=== PATIENT | female | born 2000 | race Caucasian/White ===

== ENCOUNTER → 2024-01-07 | Outpatient (CLI) | payer OTHER ==
[2024-01-07 13:30] LABS: HEMATOCRIT 38.8 % (36.0-47.0); HEMOGLOBIN 12.6 g/dl (12.0-15.5); MEAN CORPUSCULAR HEMOGLOBIN 27.5 pg (27.0-33.0); MEAN CORPUSCULAR HGB CONC 32.5 g/dl (32.0-36.5); MEAN CORPUSCULAR VOLUME 84.5 fl (80.0-96.0); PLATELET COUNT, AUTOMATED 329 10^3/uL (150-450); RED BLOOD COUNT 4.59 10^6/uL (4.00-5.40); WHITE BLOOD COUNT 14.4 10^3/uL (4.0-10.0)
[2024-01-07 13:57] LABS: HEMOGLOBIN A1c 5.1 % (4.0-6.0)
[2024-01-07 14:05] LABS: HIV 1&2 SCREEN NEGATIVE (NEGATIVE)
[2024-01-07 14:13] LABS: HEPATITIS C VIRUS ABY INDEX 0.03 INDEX (<0.8)
[2024-01-07 15:24] LABS: GC DNA AMPLIFICATION NEGATIVE (NEGATIVE)
== END ==
LOC: M PLALAB 10:16
PROVIDERS: ATTEND Advanced Practice Midwife
DX: Z34.81 Encounter for supervision of other normal pregnancy, first trimester (principal)

== ENCOUNTER → 2024-02-04 | Outpatient (CLI) | payer OTHER | LOC: M PLALAB 09:42 | PROVIDERS: ATTEND Obstetrics & Gynecology | DX: Z34.92 Encounter for supervision of normal pregnancy, unspecified, second trimester (principal) ==

== ENCOUNTER → 2024-03-13 | Outpatient (CLI) | payer OTHER | LOC: M WHC 07:35 | PROVIDERS: ATTEND Obstetrics & Gynecology | DX: Z34.92 Encounter for supervision of normal pregnancy, unspecified, second trimester (principal) ==

== ENCOUNTER → 2024-04-17 | Outpatient (CLI) | payer OTHER ==
[2024-04-17 10:29] LABS: GLUCOSE CHALLENGE TEST 1 HOUR 190 MG/DL (LESS THAN 140); HEMATOCRIT 33.2 % (36.0-47.0); HEMOGLOBIN 10.8 g/dl (12.0-15.5); MEAN CORPUSCULAR HEMOGLOBIN 27.8 pg (27.0-33.0); MEAN CORPUSCULAR HGB CONC 32.5 g/dl (32.0-36.5); MEAN CORPUSCULAR VOLUME 85.3 fl (80.0-96.0); PLATELET COUNT, AUTOMATED 279 10^3/uL (150-450); RED BLOOD COUNT 3.89 10^6/uL (4.00-5.40)
[2024-04-17 11:05] LABS: HIV 1&2 SCREEN NEGATIVE (NEGATIVE)
[2024-04-17 11:12] LABS: HEPATITIS C VIRUS ABY INDEX < 0.02 INDEX (<0.8)
[2024-04-17 12:51] LABS: GC DNA AMPLIFICATION NEGATIVE (NEGATIVE)
== END ==
LOC: M PLALAB 07:15
PROVIDERS: ATTEND Nurse Practitioner Women's Health
DX: Z34.80 Encounter for supervision of other normal pregnancy, unspecified trimester (principal)

== ENCOUNTER → 2024-04-20 | Outpatient (CLI) | payer OTHER | LOC: M WHC 08:52 | PROVIDERS: ATTEND Obstetrics & Gynecology | DX: O44.42 Low lying placenta NOS or without hemorrhage, second trimester (principal); Z3A.24 24 weeks gestation of pregnancy ==

== ENCOUNTER → 2024-04-27 | Outpatient (CLI) | payer OTHER | LOC: M LAB 06:46 | PROVIDERS: ATTEND Obstetrics & Gynecology | DX: O99.810 Abnormal glucose complicating pregnancy (principal); Z3A.00 Weeks of gestation of pregnancy not specified ==

== ENCOUNTER → 2024-06-18 | Outpatient (CLI) | payer OTHER | LOC: M RAD 07:10 | PROVIDERS: ATTEND Obstetrics & Gynecology | DX: O24.410 Gestational diabetes mellitus in pregnancy, diet controlled (principal); Z3A.33 33 weeks gestation of pregnancy ==

== ENCOUNTER → 2024-06-18 | Outpatient (REF) | payer OTHER ==
[2024-06-18 18:22] LABS: APPEARANCE, URINE HAZY (CLEAR); BACTERIA, URINE AUTO NEGATIVE (NEGATIVE); BILIRUBIN, URINE AUTO NEGATIVE (NEGATIVE); BLOOD, URINE BLOOD NEGATIVE (NEGATIVE); CALCIUM OXALATE CRYSTALS SMALL; COLOR, URINE YELLOW (YELLOW); GLUCOSE, URINE (UA) AUTO NEGATIVE (NEGATIVE); KETONE, URINE AUTO TRACE mg/dL (NEGATIVE); LEUKOCYTE ESTERASE, URINE AUTO TRACE (NEGATIVE); MUCUS, URINE SMALL (NEGATIVE); NITRITE, URINE AUTO NEGATIVE (NEGATIVE); PROTEIN, URINE AUTO NEGATIVE (NEGATIVE); RBC, URINE AUTO 1 /HPF (0-3); SPECIFIC GRAVITY URINE AUTO 1.019 (1.002-1.035); SQUAMOUS EPITHELIAL CELL UR AU 4 /HPF (0-6); UROBILINOGEN, URINE AUTO 0.2 mg/dL (0.0-2.0); WBC, URINE AUTO 3 /HPF (0-3)
== END ==
LOC: M PLALAB 14:10
PROVIDERS: ATTEND Obstetrics & Gynecology
DX: R31.0 Gross hematuria (principal)

== ENCOUNTER → 2024-07-01 | Outpatient (CLI) | payer OTHER ==
[2024-07-01 13:41] LABS: HEMATOCRIT 37.4 % (36.0-47.0); MEAN CORPUSCULAR HEMOGLOBIN 27.5 pg (27.0-33.0); MEAN CORPUSCULAR HGB CONC 32.1 g/dl (32.0-36.5); MEAN CORPUSCULAR VOLUME 85.6 fl (80.0-96.0); PLATELET COUNT, AUTOMATED 263 10^3/uL (150-450); RED BLOOD COUNT 4.37 10^6/uL (4.00-5.40)
[2024-07-01 14:01] LABS: TOTAL PROTEIN,RANDOM URINE 6.7 MG/DL (0.0-14.0)
[2024-07-01 14:04] LABS: URIC ACID 4.8 MG/DL (3.1-7.8)
[2024-07-01 14:06] LABS: CREATININE,RANDOM URINE 31.5 MG/DL; LDH LACTATE DEHYDROGENASE 134 U/L (120-246)
[2024-07-01 14:08] LABS: ALT/SGPT 11 U/L (7.0-40); AST/SGOT < 8 U/L (<34); BILIRUBIN,TOTAL 0.3 MG/DL (0.3-1.2); CREATININE FOR GFR 0.49 MG/DL (0.55-1.30); GLOMERULAR FILTRATION RATE > 60.0 (>60)
== END ==
LOC: M PLALAB 11:03
PROVIDERS: ATTEND Obstetrics & Gynecology
DX: O26.899 Other specified pregnancy related conditions, unspecified trimester (principal); Z3A.00 Weeks of gestation of pregnancy not specified

== ENCOUNTER → 2024-07-08 | Outpatient (REF) | payer OTHER ==
[~2024-07-08] MED LIST: IRON65TA2 PO; METF10004 PO; OMEP-611 PO; PRENTAB9 PO
== END ==
LOC: M SFHCWAGY 16:57
PROVIDERS: ATTEND Obstetrics & Gynecology
DX: Z33.1 Pregnant state, incidental (principal); Z3A.36 36 weeks gestation of pregnancy

== ENCOUNTER → 2024-07-10 | Outpatient (CLI) | payer OTHER | LOC: M RAD 08:44 | PROVIDERS: ATTEND Nurse Practitioner Family | DX: O24.415 Gestational diabetes mellitus in pregnancy, controlled by oral hypoglycemic drugs (principal); Z3A.36 36 weeks gestation of pregnancy ==

== ENCOUNTER 2024-07-11 09:50 | Inpatient (IN) | payer OTHER ==
[2024-07-11] VITALS (10 sets, daily range): BP systolic 126–145; BP diastolic 74–91
[~2024-07-11] VITALS: Ht 160 cm; Wt 126.1 kg
[2024-07-11] MEDS ORDERED: OMEP-611 PO (10:19)
[2024-07-11] MEDS ORDERED: PRENTAB9 PO (10:19)
[2024-07-11] MEDS ORDERED: IRON65TA2 PO (10:19)
[2024-07-11] MEDS ORDERED: METF10004 PO (10:19)
[2024-07-11] MEDS ORDERED: HOME MED LIST COMPLETE! XX SCH (10:20)
[2024-07-11] MEDS ORDERED: OXYTOCIN DRIP 30 UNITS in IV 1 EA IV PRN (12:55)
[2024-07-11] MEDS ORDERED: LACTATED RINGER'S 1000 ML IV PRN (12:55)
[2024-07-11] MEDS ORDERED: TRANEXAMIC ACID INJection 1,000 MG in NS 100 ML IV PRN (12:55)
[2024-07-11] MEDS ORDERED: CARBOPROST TROMETHAMINE 250 MCG/ML AMP IM PRN (12:55)
[2024-07-11] MEDS ORDERED: METHYLERGONOVINE MALEATE 0.2MG/ML 1ML VIAL IM PRN (12:55)
[2024-07-11 13:41] LABS: HEMATOCRIT 35.4 % (36.0-47.0); HEMOGLOBIN 11.9 g/dl (12.0-15.5); MEAN CORPUSCULAR HEMOGLOBIN 28.3 pg (27.0-33.0); MEAN CORPUSCULAR HGB CONC 33.6 g/dl (32.0-36.5); MEAN CORPUSCULAR VOLUME 84.3 fl (80.0-96.0); PLATELET COUNT, AUTOMATED 265 10^3/uL (150-450); WHITE BLOOD COUNT 14.5 10^3/uL (4.0-10.0)
[2024-07-11] MEDS: miSOPROStol 50MCG 1/2 TABLET BUC ONE ×2 (13:45→18:08)
[2024-07-11] MEDS: PENICILLIN G POTASSIUM 5 MU IV 5 MU in DEXTROSE 5% (D5W) MINI-BAG PLU 100 ML IV STA (13:45)
[2024-07-11 14:50] LABS: HEPATITIS C VIRUS ABY INDEX < 0.02 INDEX (<0.8)
[2024-07-11] MEDS ORDERED: INSULIN IV RATE CHANGE DOCUMENTATION ML/HR XX SCH (16:35)
[2024-07-11] MEDS: NS 1,000 ML IV SCH (16:52)
[2024-07-11] MEDS: INSULIN REGULAR IN 0.9 % NACL 100 UNIT in IV 1 EA IV SCH (16:53)
[2024-07-11] MEDS: PEN G POT 3,000,000 UNIT/50 ML 3,000,000 UNIT in IV 1 EA IV SCH (17:50)
[2024-07-11] MEDS: OXYTOCIN DRIP 30 UNITS in IV 1 EA IV SCH (22:45)
[2024-07-11] MEDS ORDERED: ONDANSETRON 4MG 2ML VIAL IV PRN (23:55)
[2024-07-11] MEDS ORDERED: diphenhydrAMINE 50MG/ML VIAL IV PRN (23:55)
[2024-07-11] MEDS ORDERED: LR 500 ML IV PRN (23:55)
[2024-07-11] MEDS ORDERED: ePHEDrine SULFATE 25 MG/5 ML(5MG/ML) SYRINGE IVP PRN (23:55)
[2024-07-11] MEDS ORDERED: EPIDURAL/PCA KEYS XX PRN (23:55)
[2024-07-11] MEDS ORDERED: NALOXONE INJ 0.4MG/1ML VIAL IV PRN (23:55)
[2024-07-11] MEDS: FENTANYL/ROPIVACAINE/NACL BAG 100 ML EPIDURAL SCH (23:59)
[2024-07-12] VITALS (42 sets, daily range): BP systolic 89–172; BP diastolic 45–88; TEMP 99.3; O2SAT 96
[2024-07-12] MEDS ORDERED: ceFAZolin SOD 3 GM IV Place Holder IV ONE (11:55)
[2024-07-12 12:19] LABS: HEMATOCRIT 35.1 % (36.0-47.0); HEMOGLOBIN 11.4 g/dl (12.0-15.5); MEAN CORPUSCULAR HEMOGLOBIN 27.9 pg (27.0-33.0); MEAN CORPUSCULAR HGB CONC 32.5 g/dl (32.0-36.5); PLATELET COUNT, AUTOMATED 246 10^3/uL (150-450); RED BLOOD COUNT 4.08 10^6/uL (4.00-5.40); WHITE BLOOD COUNT 18.5 10^3/uL (4.0-10.0)
[2024-07-12] MEDS ORDERED: **NOTE PATIENT COMMENT** MISC XX SCH ×2 (12:20→14:20)
[2024-07-12] MEDS ORDERED: diphenhydrAMINE 50MG/ML VIAL IV PRN ×2 (12:20→14:20)
[2024-07-12] MEDS: PERCOCET 5MG/325MG TAB PO ONE (12:20)
[2024-07-12] MEDS ORDERED: NALOXONE INJ 0.4MG/1ML VIAL IV PRN ×4 (12:20→14:20)
[2024-07-12] MEDS ORDERED: METOCLOPRAMIDE INJ 10MG/2ML VIAL IV PRN ×2 (12:20→14:20)
[2024-07-12] MEDS ORDERED: SLF 3 ML SYR IV SCH (12:20)
[2024-07-12] MEDS ORDERED: ONDANSETRON 4MG 2ML VIAL IV PRN ×3 (12:20→14:20)
[2024-07-12] MEDS ORDERED: NALBUPHINE HCL 10 MG/ML 1ML AMP IV PRN (12:20)
[2024-07-12] MEDS: BICITRA 30ML SOLN UDC PO ONE (12:36)
[2024-07-12] MEDS: ceFAZolin SOD 2 GM in IV 1 EA IV ONE (12:36)
[2024-07-12] MEDS: ceFAZolin SOD 1 GM in DEXTROSE 5% (D5W) ADV/MINI-BAG 50 ML IV ONE (12:36)
[2024-07-12] MEDS: AZITHROMYCIN INJ 500 MG, VIAL MATE ADAPTER 1 EACH in NS 250 ML IV ONE (12:37)
[2024-07-12] MEDS ORDERED: ONDANSETRON 4MG 2ML VIAL As Ordered ONE (13:09)
[2024-07-12] MEDS ORDERED: LIDOCAINE 2% W/EPINEPHRINE 20ML VIAL **PRES FREE As Ordered ONE (13:09)
[2024-07-12] MEDS ORDERED: fentaNYL 100 MCG/2 ML INJECTION As Ordered ONE (13:09)
[2024-07-12] MEDS ORDERED: PHENYLephrine 500MCG 5ML (100MCG/ML) SYRINGE As Ordered ONE (13:09)
[2024-07-12] MEDS ORDERED: GLYCOPYRROLATE INJ 0.2 MG/ML 2 ML VIAL As Ordered ONE (13:20)
[2024-07-12] MEDS ORDERED: METOCLOPRAMIDE INJ 10MG/2ML VIAL As Ordered ONE (13:20)
[2024-07-12] MEDS ORDERED: MORPHINE PRES-FREE INJ 10 MG/10 ML VIAL As Ordered ONE (13:29)
[2024-07-12] MEDS ORDERED: KETOROLAC 60MG 2ML VIAL As Ordered ONE (13:34)
[2024-07-12] MEDS ORDERED: OXYTOCIN 30UNITS IN 0.9% NaCl 500ML IV BAG As Ordered ONE (13:38)
[2024-07-12] MEDS ORDERED: SIMETHICONE 80MG CHEW TAB PO PRN (13:50)
[2024-07-12] MEDS: ACETAMINOPHEN 500 MG TAB PO SCH (14:00)
[2024-07-12] MEDS: OXYTOCIN DRIP 30 UNITS in IV 1 EA IV SCH (14:17)
[2024-07-12] MEDS ORDERED: PERCOCET 5MG/325MG TAB PO PRN (14:20)
[2024-07-12] MEDS: SLF 3 ML SYR IV SCH (14:20)
[2024-07-12] MEDS ORDERED: fentaNYL 100 MCG/2 ML INJECTION IV PRN (14:20)
[2024-07-12] MEDS ORDERED: oxyCODONE 5MG TAB PO PRN (14:20)
[2024-07-12] MEDS ORDERED: oxyCODONE 5MG TAB As Ordered ONE (14:56)
[2024-07-12] MEDS: oxyCODONE 5MG TAB PO PRN (14:58)
[2024-07-12] MEDS: METOCLOPRAMIDE INJ 10MG/2ML VIAL IV PRN (18:50)
[2024-07-12] MEDS: KETOROLAC 30 MG/ML 1ML VIAL IV SCH (20:03)
[2024-07-13 02:00] VITALS: BP 105/55; O2SAT 97
[2024-07-13 06:04] VITALS: BP 118/58; O2SAT 98
[2024-07-13 07:35] LABS: HEMATOCRIT 31.3 % (36.0-47.0); HEMOGLOBIN 10.4 g/dl (12.0-15.5); MEAN CORPUSCULAR HEMOGLOBIN 28.4 pg (27.0-33.0); MEAN CORPUSCULAR HGB CONC 33.2 g/dl (32.0-36.5); MEAN CORPUSCULAR VOLUME 85.5 fl (80.0-96.0); PLATELET COUNT, AUTOMATED 207 10^3/uL (150-450); RED BLOOD COUNT 3.66 10^6/uL (4.00-5.40); WHITE BLOOD COUNT 12.8 10^3/uL (4.0-10.0)
[2024-07-13] MEDS: PRENATAL VITAMINS CHEWABLE TABLET PO SCH (08:18)
[2024-07-13] MEDS: DOCUSATE SODIUM 100MG CAPSULE PO PRN (08:19)
[2024-07-13] MEDS: RHOGAM 300MCG (1500IU) INJ IM SCH (09:11)
[2024-07-13] MEDS: oxyCODONE 5MG TAB PO PRN (09:23)
[2024-07-13 10:00] VITALS: BP 122/57; O2SAT 96
[2024-07-13] MEDS ORDERED: FLUZONE VACCINE TRIVALENT PF(2024-25) 0.5ML SYRINGE IM.IMMUN ONE (11:00)
[2024-07-13] MEDS: IBUPROFEN 600MG TAB PO SCH (14:05)
[2024-07-13 18:00] VITALS: BP 135/69; O2SAT 97
[2024-07-13 22:00] VITALS: BP 111/66; O2SAT 98
[2024-07-14 02:00] VITALS: BP 130/73; O2SAT 97
[2024-07-14 06:00] VITALS: BP 134/60; O2SAT 96
[2024-07-14] MEDS: MEASLES,MUMPS,RUBELLA VACCINE INJ (MMR-II) SC.IMMUN ONE (11:39)
[2024-07-14] MEDS: FLUZONE VACCINE TRIVALENT PF(2024-25) 0.5ML SYRINGE IM.IMMUN ONE (11:43)
== END 2024-07-14 14:45 | disposition home or self-care (01) | DRG 788 ==
LOC: M LDO 09:50 → M LDI 12:40 → M OBS 07-12 16:05
PROVIDERS: ADMIT Obstetrics & Gynecology; ATTEND Obstetrics & Gynecology
PROC: 3E0P7GC Introduction of Other Therapeutic Substance into Female Reproductive, Via Natural or Artificial Opening (ICD-10-PCS; 2024-07-11)
PROC: 10D00Z1 Extraction of Products of Conception, Low, Open Approach (ICD-10-PCS; principal; 2024-07-12 12:37)
DX: O42.013 Preterm premature rupture of membranes, onset of labor within 24 hours of rupture, third trimester (principal); O24.425 Gestational diabetes mellitus in childbirth, controlled by oral hypoglycemic drugs; Z37.0 Single live birth; Z3A.36 36 weeks gestation of pregnancy; O99.824 Streptococcus B carrier state complicating childbirth; O61.0 Failed medical induction of labor; O76 Abnormality in fetal heart rate and rhythm complicating labor and delivery